=== PATIENT | female | born 1970 | race Two or more races ===

== ENCOUNTER 2024-06-27 12:28 | Emergency (ER) | payer OTHER ==
[~2024-06-27] VITALS: Ht 160 cm; Wt 56.7 kg
[2024-06-27] MEDS ORDERED: SYNTHROID125 MCG PO (12:52)
== END 2024-06-27 17:53 | disposition home or self-care (01) ==
LOC: ER 12:31
DX: R07.0 Pain in throat (principal); E03.9 Hypothyroidism, unspecified